=== PATIENT | female | born 1965 | race Caucasian/White ===

== ENCOUNTER 2016-12-02 09:30 | Outpatient (RCR) | payer BC ==
[~2016-12-02 09:30] MED LIST: ADVAIR 500/28 DISKUS IH; ADVAIR DISKUS 51 DSK IH; ALBUTEROL0.09 MG/A1 IH; ALLEGY SHOTS SC; AMBIEN 10MG10 MG PO; ASMANEX IH; ASMANEX TW110 MCG/AC IH; ASPIRIN 32325 MG/TAB PO; ASPIRIN 81M81 MG/TA2 PO; ASPIRIN E.C. 8181 MG PO; ASTELIN IH; ASTELIN NASAL S34 ML NS; ASTELIN137 MCG/AC NS; ATROVENT NASAL15 ML NS; BIAXIN 500MG T500 MG PO; BIAXIN FILMTAB500 MG PO; BIAXIN XL 500M500 MG PO; BIAXIN XL500 MG PO; CALCIUM + D 6001 TA1 PO; CALCIUM 500 W/V1 TAB PO; CELEXA40 MG PO; CEPHALEXIN500 M1 PO; CLOTRIMAZOLE REC; CLOTRIMAZOLE VA45 GM TP; CROMOLYN IH; CYMBALTA 20MG20 MG PO; CYMBALTA60 MG PO; DIFLUCAN; DIFLUCAN 100MG100 MG PO; DIFLUCAN PO; DIOVAN HCT 25 M1 TAB PO; FLONASE NASAL S16 GM NS; FORADIL IH; FORTEO250 MCG/ML SC; FORTEO250 MCG/ML SQ; GENTAMICIN180 MG/501 NS; GLUCOPHAGE1000 MG PO; GUAIFENESIN DM PO; HYZAAR 50-12.1 UDTAB PO; INTAL IH; LASIX PO; LASIX20 MG PO; LEVAQUIN 5500 MG/TAB PO; LISINOPRIL AND1 TAB PO; LISINOPRIL/HCTZ1 TAB PO; MEDROL; MINOCYCLIN100 MG/CAP PO; MUCINEX 60600 MG/TAB PO; MUCINEX D 600 M1 TER PO; MUCINEX DM 30 M1 TE1 PO; MUCOMYST 20200 MG/M1 IH; MULTI VITAMINS1 TAB PO; MYCELEX TROCHE10 MG MM; NIFEREX-150 501 CA1 PO; NORCO 325 MG-7.1 TAB PO; NORVASC2.5 MG PO; OXYCONTIN 80MG80 MG PO; OXYCONTIN30 MG PO; PATANASE0.6% NS; PERCOCET 325 MG1 TA2 PO; PERCOCET 325 MG1 TAB PO; PERCOCET 500 MG1 TAB PO; POTASSIUM IODID PO; PREDNISONE 5MG5 MG PO; PREDNISONE10 MG PO; PREDNISONE20 MG PO; PREMARIN 0.60.625 M1 PO; PROTONIX 40MG T40 MG PO; PULMICORT180 MCG/Ac IH; PULMICORT90 MCG/Act IH; RESTASIS0.05% OU; RT ADVAIR 128 DISKUS IH; RT ADVAIR 528 DISKUS IH; SENAKOT PO; SINGULAIR 110 MG/TAB PO; SINGULAIR10 MG PO; SPIRIVA INH IH; SPORANOX100 MG PO; SYNTHROID0.05 MG/TA PO; TAMIFLU 75MG75 MG PO; ULTRAM 50MG TAB50 MG PO; VENTOLIN0.09 MG IH; VITAMIN D 50,1.25 MG PO; VITAMIN D32000 IU; VITAMIN D32000 IU PO; XOLAIR SC; XOLAIR SQ; XOPENEX 1.1.25 MG/3 IH; XOPENEX HF0.045 MG/A IH; XOPENEX1.25 MG/0. IH; ZANTAC 150MG T150 MG PO; ZANTAC 300300 MG PO; ZANTAC PO; ZYRTEC 10MG PO; ZYRTEC 10MG10 MG PO; ZYRTEC10 MG PO; [UNRECOGNIZED DRUG - OTHER] IH; acetylcysteine; cozaar
[2016-12-09] MEDS ORDERED: NORCO 325 MG-7.1 TAB PO (09:58)
== END 2016-12-08 16:29 | disposition still patient (30) ==
LOC: WSPT 09:30
DX: M25.562 Pain in left knee (principal); R60.0 Localized edema; R53.1 Weakness

== ENCOUNTER 2016-12-09 06:09 | Day surgery (SDC) | payer BC ==
[2016-12-09] VITALS (7 sets, daily range): BP systolic 93–131; BP diastolic 42–69; PULSE 87–106; TEMP 97.7–98
[~2016-12-09] VITALS: Ht 157.5 cm; Wt 100.4 kg
[2016-12-09] MEDS ORDERED: NORCO 325 MG-7.1 TAB PO (09:58)
== END 2016-12-09 11:25 | disposition home or self-care (01) ==
LOC: SDCO 06:09
DX: L97.519 Non-pressure chronic ulcer of other part of right foot with unspecified severity (principal); L03.031 Cellulitis of right toe
CPT/HCPCS: J0690; J1170; J1720; J2250; J2405; J2704; J3010; J7030

== ENCOUNTER 2017-01-06 05:37 | Day surgery (SDC) | payer BC ==
[2017-01-06] VITALS (7 sets, daily range): BP systolic 110–159; BP diastolic 51–95; PULSE 88–102; TEMP 97.9
[~2017-01-06] VITALS: Ht 157.5 cm; Wt 102.5 kg
[2017-01-06] MEDS ORDERED: DIOVAN320 MG PO (06:43)
[2017-01-06] MEDS ORDERED: NORCO 325 MG-101 TAB PO (06:44)
== END 2017-01-06 10:55 | disposition home or self-care (01) ==
LOC: SDCO 05:37
DX: M20.42 Other hammer toe(s) (acquired), left foot (principal); L84 Corns and callosities
CPT/HCPCS: J0690; J1720; J2250; J2405; J2704; J3010; J7120

== ENCOUNTER 2017-01-19 10:01 | Inpatient (IN) | payer BC ==
[~2017-01-19] VITALS: Ht 157.5 cm; Wt 105.3 kg
[~2017-01-19 10:01] MED LIST changes: +DIOVAN320 MG PO; +NORCO 325 MG-101 TAB PO
[2017-02-25] VITALS (11 sets, daily range): BP systolic 118–154; BP diastolic 51–91; PULSE 80–107; TEMP 97–98.6
[2017-02-25] MEDS ORDERED: AMBIEN 5MG TABLE5 MG PO (06:09)
[2017-02-26] VITALS (7 sets, daily range): BP systolic 137–172; BP diastolic 46–98; PULSE 89–107; TEMP 97.3–99
[2017-02-26 06:47] LABS: HEMATOCRIT 37.5 % (37.0-47.0); HEMOGLOBIN 12.2 g/dl (12.5-16.0)
[2017-02-27 04:21] VITALS: BP 137/64; PULSE 82; TEMP 97.8
[2017-02-27 07:05] VITALS: BP 137/65; PULSE 100; TEMP 98.1
[2017-02-27 07:43] LABS: HEMOGLOBIN 11.6 g/dl (12.5-16.0)
[2017-02-27] MEDS ORDERED: ASPIRIN 32325 MG/TAB PO (08:47)
[2017-02-27] MEDS ORDERED: DAZIDOX10 MG PO (08:48)
[2017-02-27 12:22] VITALS: BP 121/58; PULSE 116; TEMP 97.9
== END 2017-02-27 14:30 | disposition home or self-care (01) | DRG 470 ==
LOC: JCC 02-25 05:33
PROVIDERS: Orthopaedic Surgery
PROC: 0SRD0J9 Replacement of Left Knee Joint with Synthetic Substitute, Cemented, Open Approach (ICD-10-PCS; principal; 2017-02-25 07:30)
DX: M17.12 Unilateral primary osteoarthritis, left knee (principal); I10 Essential (primary) hypertension; J45.909 Unspecified asthma, uncomplicated; M70.61 Trochanteric bursitis, right hip
CPT/HCPCS: A9284; C1713; C1776; J0690; J1720; J2250; J2270; J2405; J2704; J2765; J3010; J3370; J7120

== ENCOUNTER → 2017-02-09 | Outpatient (CLI) | payer BC ==
[~2017-02-09] MED LIST changes: +ALDACTONE 25MG25 M1 PO; +AMBIEN 5MG TABLE5 MG PO; +CALCIUM 600MG+D1 TAB PO; +CYMBALTA 60MG60 MG PO; +DAZIDOX10 MG PO; +LASIX 40MG TABL40 MG PO; +MASON NATURAL2000 IU PO; +PROVENTIL0.09 MG/A1 IH; +SENOKOT S 50 MG1 TAB PO
== END ==
LOC: MC.RAD 11:20
DX: Z12.31 Encounter for screening mammogram for malignant neoplasm of breast (principal)

== ENCOUNTER 2017-02-19 10:00 | Outpatient (RCR) | payer BC ==
[~2017-02-19 10:00] MED LIST changes: -ALDACTONE 25MG25 M1 PO; -AMBIEN 5MG TABLE5 MG PO; -CALCIUM 600MG+D1 TAB PO; -CYMBALTA 60MG60 MG PO; -DAZIDOX10 MG PO; -LASIX 40MG TABL40 MG PO; -MASON NATURAL2000 IU PO; -PROVENTIL0.09 MG/A1 IH; -SENOKOT S 50 MG1 TAB PO
== END 2017-02-23 | disposition home or self-care (01) ==
LOC: WSPT
DX: M25.562 Pain in left knee (principal); R60.0 Localized edema; R53.1 Weakness

== ENCOUNTER 2017-02-23 12:34 | Outpatient (RCR) | payer BC | END 2017-02-23 14:56 | LOC: WSPT 12:34 | DX: Z01.818 Encounter for other preprocedural examination (principal); M25.862 Other specified joint disorders, left knee ==

== ENCOUNTER 2017-04-10 01:35 | Emergency (ER) | payer BC ==
[~2017-04-10] VITALS: Ht 157.5 cm; Wt 102.3 kg
[~2017-04-10 01:35] MED LIST changes: +AMBIEN 5MG TABLE5 MG PO; +DAZIDOX10 MG PO
[2017-04-10 01:40] VITALS: TEMP 97.7
[2017-04-10] MEDS ORDERED: PERCOCET 325 MG1 TAB PO (01:47)
[2017-04-10 02:23] LABS: BASO # 0.1 (0.0-0.2); BASO % 0.5 % (0.0-2.0); EOS # 0.1 (0.0-0.7); GRAN # 9.1 (1.4-6.5); GRAN % 64.9 % (42.2-75.2); HEMATOCRIT 37.3 % (37.0-47.0); LYMPH # 3.4 (1.2-3.4); LYMPH % 24.1 % (20.0-51.0); MEAN CELL VOLUME 92 fl (80.0-100.0); MEAN CORPUSCULAR HEMOGLOBIN 30 pg (27.0-31.0); MEAN CORPUSCULAR HGB CONC 32 g/dl (33.0-37.0); MEAN PLATELET VOLUME 10.9 fl (7.4-10.4); MONO # 1.3 (0.1-0.6); PLATELET COUNT 326 K/mm3 (130-400); RED BLOOD COUNT 4.05 M/mm3 (4.10-5.30); REDCELL DISTRIBUTION WIDTH-CV 14.7 % (11.5-14.5)
[2017-04-10 02:28] LABS: PROTHROMBIN TIME 11.6 SECONDS (9.7-12.8)
[2017-04-10 02:30] LABS: PARTIAL THROMBOPLASTIN TIME 30.7 SECONDS (26.0-37.0)
[2017-04-10 02:34] LABS: ANION GAP 11 mmol/L (7-16); BLOOD UREA NITROGEN 12 mg/dL (7-17); C-REACTIVE PROTEIN 2.9 mg/dL (0.0-0.9); CALCIUM 8.6 mg/dL (8.4-10.2); CARBON DIOXIDE 27 mmol/L (22-30); CHLORIDE 96 mmol/L (98-107); CREATINE KINASE 115 U/L (30-135); CREATININE, serum 0.85 mg/dL (0.52-1.25); GLUCOSE 83 mg/dL (74-106); POTASSIUM 3.5 mmol/L (3.4-5.0); SODIUM 134 mmol/L (137-145)
[2017-04-10] MEDS ORDERED: PROVENTIL0.09 MG/A1 IH (02:34)
[2017-04-10] MEDS ORDERED: DIOVAN320 MG PO (02:35)
[2017-04-10] MEDS ORDERED: LASIX 40MG TABL40 MG PO (02:36)
[2017-04-10] MEDS ORDERED: CYMBALTA 60MG60 MG PO (02:37)
[2017-04-10] MEDS ORDERED: ALDACTONE 25MG25 M1 PO (02:37)
[2017-04-10] MEDS ORDERED: MASON NATURAL2000 IU PO (02:42)
[2017-04-10] MEDS ORDERED: CALCIUM 600MG+D1 TAB PO (02:42)
[2017-04-10 02:43] LABS: TROPONIN-I < 0.012 ng/mL (0.000-0.034)
[2017-04-10] MEDS ORDERED: SENOKOT S 50 MG1 TAB PO (02:44)
[2017-04-10 02:45] VITALS: BP 119/98; PULSE 84
== END 2017-04-10 03:29 | disposition home or self-care (01) ==
LOC: COL.ER 01:35
PROVIDERS: Emergency Medicine
DX: M25.511 Pain in right shoulder (principal); M79.641 Pain in right hand; J45.909 Unspecified asthma, uncomplicated; I10 Essential (primary) hypertension; G89.29 Other chronic pain; J98.4 Other disorders of lung
CPT/HCPCS: J1170; J7040

== ENCOUNTER 2017-05-01 09:15 | Outpatient (RCR) | payer BC ==
[~2017-05-01 09:15] MED LIST changes: +ALDACTONE 25MG25 M1 PO; +CALCIUM 600MG+D1 TAB PO; +CYMBALTA 60MG60 MG PO; +LASIX 40MG TABL40 MG PO; +MASON NATURAL2000 IU PO; +PROVENTIL0.09 MG/A1 IH; +SENOKOT S 50 MG1 TAB PO
== END 2017-06-02 | disposition home or self-care (01) ==
LOC: WSPT
DX: Z47.89 Encounter for other orthopedic aftercare (principal); M25.862 Other specified joint disorders, left knee
CPT/HCPCS: G0283-GP

== ENCOUNTER → 2017-05-05 | Outpatient (CLI) | payer MEDICARE, BC | LOC: MHCPAIN 09:11 | DX: G89.29 Other chronic pain (principal); M54.12 Radiculopathy, cervical region; M47.812 Spondylosis without myelopathy or radiculopathy, cervical region | CPT/HCPCS: G0463 ==

== ENCOUNTER 2017-06-09 10:00 | Outpatient (RCR) | payer MEDICARE, BC | END 2017-06-11 15:08 | LOC: WSPT 10:00 | DX: M50.30 Other cervical disc degeneration, unspecified cervical region (principal); M54.6 Pain in thoracic spine | CPT/HCPCS: G8981-GP; G8982-GP ==

== ENCOUNTER → 2017-06-22 | Outpatient (CLI) | payer BC, MEDICARE | LOC: COL.PUL 06-11 14:20 | DX: J44.9 Chronic obstructive pulmonary disease, unspecified (principal) ==

== ENCOUNTER 2017-07-02 11:00 | Outpatient (RCR) | payer MEDICARE, BC | END 2017-07-03 12:27 | disposition home or self-care (01) | LOC: WSPT 11:00 | DX: M50.30 Other cervical disc degeneration, unspecified cervical region (principal) | CPT/HCPCS: G8982-GP; G8983-GP ==

== ENCOUNTER 2017-09-01 13:20 | Outpatient (RCR) | payer BC, MEDICARE | END 2017-11-11 09:40 | disposition home or self-care (01) | LOC: WSPT 13:20 | DX: M71.551 Other bursitis, not elsewhere classified, right hip (principal) | CPT/HCPCS: G8978-GP; G8979-GP; G8980-GP ==

== ENCOUNTER 2017-11-03 15:30 | Outpatient (RCR) | payer BC, MEDICARE | END 2017-11-04 | LOC: WSPT | DX: M62.81 Muscle weakness (generalized) (principal); R52 Pain, unspecified; Z87.81 Personal history of (healed) traumatic fracture; Z96.653 Presence of artificial knee joint, bilateral; Z79.52 Long term (current) use of systemic steroids | CPT/HCPCS: G8978-GP; G8979-GP ==

== ENCOUNTER → 2017-12-02 | Outpatient (CLI) | payer MEDICARE, BC ==
[~2017-12-02] VITALS: Ht 157.5 cm; Wt 102.8 kg
[2017-12-02 17:34] VITALS: BP 146/84; PULSE 97; TEMP 97.8
== END ==
LOC: EUO 14:00
DX: M81.0 Age-related osteoporosis without current pathological fracture (principal); Z87.81 Personal history of (healed) traumatic fracture
CPT/HCPCS: J3489

== ENCOUNTER 2018-01-22 16:00 | Outpatient (RCR) | payer BC, MEDICARE | END 2018-02-04 08:12 | disposition home or self-care (01) | LOC: WSPT 16:00 | DX: M70.71 Other bursitis of hip, right hip (principal); M76.9 Unspecified enthesopathy, lower limb, excluding foot | CPT/HCPCS: G8979-GP; G8980-GP ==

== ENCOUNTER → 2018-02-23 | Outpatient (CLI) | payer MEDICARE, BC | LOC: MC.RAD 10:20 | DX: Z12.31 Encounter for screening mammogram for malignant neoplasm of breast (principal) ==

== ENCOUNTER → 2018-03-30 | Outpatient (CLI) | payer MEDICARE, BC | LOC: COL.RAD 03-11 09:27 | DX: K31.84 Gastroparesis (principal); K21.9 Gastro-esophageal reflux disease without esophagitis; R05 Cough; J45.909 Unspecified asthma, uncomplicated; R49.0 Dysphonia | CPT/HCPCS: A9541 ==

== ENCOUNTER 2018-04-02 16:00 | Outpatient (RCR) | payer MEDICARE, BC | END 2018-04-07 08:35 | disposition home or self-care (01) | LOC: WSPT 16:00 | DX: M75.52 Bursitis of left shoulder (principal) | CPT/HCPCS: G8984-GP; G8985-GP; G8986-GP ==

== ENCOUNTER 2018-12-20 14:15 | Outpatient (RCR) | payer MEDICARE, BC | END 2018-12-21 | disposition home or self-care (01) | LOC: WSPT | DX: M79.672 Pain in left foot (principal); R53.81 Other malaise; Z98.890 Other specified postprocedural states; Z96.7 Presence of other bone and tendon implants | CPT/HCPCS: G8978-GP; G8979-GP ==

== ENCOUNTER 2018-12-22 16:10 | Outpatient (RCR) | payer MEDICARE, BC | END 2018-12-30 11:27 | disposition home or self-care (01) | LOC: WSPT 16:10 | DX: M79.672 Pain in left foot (principal); R53.81 Other malaise ==

== ENCOUNTER → 2019-01-26 | Outpatient (CLI) | payer MEDICARE, BC ==
[2019-01-26 17:24] LABS: COLLECTION METHOD CLEAN CATCH
[2019-01-26 17:41] LABS: PH 7 (5-8); SQUAMOUS EPITHELIAL 0-2 /hpf; URINE APPEARANCE Clear; URINE BACTERIA Rare /hpf; URINE BILIRUBIN Negative (NEGATIVE); URINE BLOOD Negative (NEGATIVE); URINE COLOR Straw; URINE GLUCOSE Negative (NEGATIVE); URINE KETONE Negative (NEGATIVE); URINE LEUKOCYTE ESTERASE Negative (NEGATIVE); URINE NITRATE Negative (NEGATIVE); URINE PROTEIN(semi-quant) Negative (NEGATIVE); URINE RBC 0-2 /hpf; URINE UROBILINOGEN Negative (NEGATIVE); URINE WBC 0-2 /hpf
== END ==
LOC: ZCOL.LAB 16:05
PROVIDERS: Internal Medicine
DX: Z01.89 Encounter for other specified special examinations (principal)

== ENCOUNTER 2019-06-06 15:00 | Outpatient (RCR) | payer MEDICARE, BC | END 2019-06-21 09:14 | disposition home or self-care (01) | LOC: WSPT 15:00 | DX: S82.001A Unspecified fracture of right patella, initial encounter for closed fracture (principal) ==

== ENCOUNTER → 2019-06-15 | Outpatient (CLI) | payer MEDICARE, BC | LOC: MC.RAD 11:15 | DX: Z12.31 Encounter for screening mammogram for malignant neoplasm of breast (principal); N63.41 Unspecified lump in right breast, subareolar ==

== ENCOUNTER → 2019-06-21 | Outpatient (CLI) | payer MEDICARE, BC | LOC: MC.RAD 14:27 | DX: N60.01 Solitary cyst of right breast (principal) ==

== ENCOUNTER → 2019-06-24 | Outpatient (CLI) | payer MEDICARE, BC | LOC: MC.RAD 12:48 | DX: N60.01 Solitary cyst of right breast (principal) ==

== ENCOUNTER 2019-11-03 11:15 | Outpatient (RCR) | payer MEDICARE, BC | END 2020-02-01 | disposition still patient (30) | LOC: WSST | DX: R13.12 Dysphagia, oropharyngeal phase (principal); R05 Cough ==

== ENCOUNTER → 2020-01-04 | Outpatient (CLI) | payer MEDICARE, BC | LOC: COL.RAD 14:27 | DX: R13.10 Dysphagia, unspecified (principal); R05 Cough ==

== ENCOUNTER 2020-02-02 12:00 | Outpatient (RCR) | payer MEDICARE, BC | END 2020-03-07 14:22 | disposition home or self-care (01) | LOC: WSPT 12:00 | DX: S82.091 Other fracture of right patella (principal); E11.40 Type 2 diabetes mellitus with diabetic neuropathy, unspecified; Z89.421 Acquired absence of other right toe(s); Z98.890 Other specified postprocedural states ==

== ENCOUNTER 2020-04-27 10:44 | Observation (INO) | payer MEDICARE, BC ==
[~2020-04-27] VITALS: Ht 157.5 cm; Wt 111.1 kg
[2020-04-27 11:16] LABS: COLLECTION METHOD CLEAN CATCH
[2020-04-27 11:25] LABS: BASO # 0.1 (0.0-0.2); BASO % 0.9 % (0.0-2.0); EOS # 0.4 (0.0-0.7); EOS % 3.3 % (0-4.0); GRAN # 5.8 (1.4-6.5); GRAN % 55.5 % (42.2-75.2); HEMATOCRIT 38.7 % (37.0-47.0); HEMOGLOBIN 11.8 g/dl (12.5-16.0); LYMPH # 3.2 (1.2-3.4); LYMPH % 30.7 % (20.0-51.0); MEAN CELL VOLUME 89 fl (80.0-100.0); MEAN CORPUSCULAR HEMOGLOBIN 27 pg (27.0-31.0); MEAN CORPUSCULAR HGB CONC 31 g/dl (33.0-37.0); MEAN PLATELET VOLUME 10.9 fl (7.4-10.4); MONO % 9.2 % (1.7-9.3); PLATELET COUNT 337 K/mm3 (130-400); RED BLOOD COUNT 4.33 M/mm3 (4.10-5.30); REDCELL DISTRIBUTION WIDTH-CV 15.9 % (11.5-14.5)
[2020-04-27 11:36] LABS: MUCOUS Present /lpf; PH 5 (5-8); SQUAMOUS EPITHELIAL 0-2 /hpf; URINE APPEARANCE Hazy; URINE BACTERIA None Seen /hpf; URINE BILIRUBIN Negative (NEGATIVE); URINE BLOOD Negative (NEGATIVE); URINE COLOR Yellow; URINE GLUCOSE 3+ (NEGATIVE); URINE KETONE Negative (NEGATIVE); URINE LEUKOCYTE ESTERASE Negative (NEGATIVE); URINE NITRATE Negative (NEGATIVE); URINE PROTEIN(semi-quant) Negative (NEGATIVE); URINE RBC 0-2 /hpf; URINE UROBILINOGEN Negative (NEGATIVE)
[2020-04-27 11:36] LABS: ALANINE AMINOTRANSFERASE 25 U/L (4-34); ALBUMIN 4.1 gm/dL (3.5-5.0); ALKALINE PHOSPHATASE 97 U/L (50-136); ANION GAP 11 mmol/L (7-16); AST,SGOT 30 U/L (15-37); BILIRUBIN,TOTAL 0.4 mg/dL (0.0-1.0); BLOOD UREA NITROGEN 28 mg/dL (7-17); C-REACTIVE PROTEIN < 0.5 mg/dL (0.0-0.9); CALCIUM 8.2 mg/dL (8.4-10.2); CARBON DIOXIDE 25 mmol/L (22-30); CHLORIDE 99 mmol/L (98-107); CREATININE, serum 1.52 (0.52-1.25); GLUCOSE 114 mg/dL (74-106); POTASSIUM 3.7 mmol/L (3.4-5.0); SODIUM 134 mmol/L (137-145); TOTAL PROTEIN 7.2 gm/dL (6.4-8.2)
[2020-04-27] MEDS ORDERED: CORTEF 10MG TAB10 MG PO (11:48)
[2020-04-27 11:55] VITALS: BP 90/46; PULSE 96
[2020-04-27] MEDS ORDERED: PROVENTIL0.09 MG/A1 IH (12:47)
[2020-04-27] MEDS ORDERED: ASTEPRO205.5 MCG/ NS (12:48)
[2020-04-27] MEDS ORDERED: ATACAND32 MG PO (12:54)
[2020-04-27] MEDS ORDERED: CEPHALEXIN500 M1 PO (12:55)
[2020-04-27] MEDS ORDERED: FARXIGA10 PO (12:58)
[2020-04-27] MEDS ORDERED: PEPCID 20MG TAB20 MG PO (12:59)
[2020-04-27] MEDS ORDERED: FLONASEALLERGY NS (13:02)
[2020-04-27] MEDS ORDERED: NEURONTIN600 MG/TAB PO (13:04)
[2020-04-27] MEDS ORDERED: SYNTHROID0.075 MG/T PO (13:07)
[2020-04-27] MEDS ORDERED: BACTROBAN 22GM22 GM NAS (13:11)
[2020-04-27] MEDS ORDERED: OXYCONTIN30 MG PO (13:12)
[2020-04-27] MEDS ORDERED: NARCAN4 MG NS (13:13)
[2020-04-27] MEDS ORDERED: ZOFRAN ODT4 MG PO (13:14)
[2020-04-27] MEDS ORDERED: PREMARIN .3MG0.3 MG PO (13:15)
[2020-04-27] MEDS ORDERED: CRESTOR 10MG10 MG PO (13:16)
[2020-04-27] MEDS ORDERED: PREVIDENT5000PLUS DT (13:16)
[2020-04-27] MEDS ORDERED: SENNA-LAX8.6 MG PO (13:17)
[2020-04-27] MEDS ORDERED: ALDACTONE 25MG25 M1 PO (13:18)
[2020-04-27] MEDS ORDERED: DESYREL 50MG50 MG PO (13:19)
[2020-04-27] MEDS ORDERED: TYMLOS1.56 ML SQ (13:20)
[2020-04-27 14:54] VITALS: BP 108/56; PULSE 91; TEMP 97.9
[2020-04-27 15:08] VITALS: BP 108/56; PULSE 91; TEMP 97.9
[2020-04-27] MEDS ORDERED: VITAMIN D31000 IU PO (16:24)
--- NOTE | 2020-04-27 19:34 | NUR ---
Pt to floor this afternoon from the ED, Pt has chronic pain and requested pain medication, medication was given as soon as able. all initial assessments completed.
[2020-04-27 19:53] VITALS: BP 122/70; PULSE 76; TEMP 97.2
--- NOTE | 2020-04-27 21:00 | NUR ---
Received report from TONY Saavedra. A/Ox4. Independent in room. Has chronic pain and c/o pain to pelvic area, rate 4/10, scheduled pain meds and other meds administered. IVF infusing to LFA, intact, dressing CDI. Tele monitor in place.BLE edema observed 3+. Needs met at this time. call light within reach.
[2020-04-27 23:57] VITALS: BP 124/74; PULSE 83; TEMP 98.1
--- NOTE | 2020-04-28 00:30 | NUR ---
Covid lab negative. Pt ambulated to room 358.
[2020-04-28 03:18] VITALS: BP 110/54; PULSE 85; TEMP 97.8
--- NOTE | 2020-04-28 05:39 | NUR ---
Pt made no complaints during this shift. Meds administered as ordered. Needs attended too. Call light within reach.
[2020-04-28 06:49] LABS: HEMATOCRIT 39.1 % (37.0-47.0); HEMOGLOBIN 11.8 g/dl (12.5-16.0); MEAN CELL VOLUME 90 fl (80.0-100.0); MEAN CORPUSCULAR HEMOGLOBIN 27 pg (27.0-31.0); MEAN CORPUSCULAR HGB CONC 30 g/dl (33.0-37.0); PLATELET COUNT 286 K/mm3 (130-400); RED BLOOD COUNT 4.37 M/mm3 (4.10-5.30); REDCELL DISTRIBUTION WIDTH-CV 15.8 % (11.5-14.5)
[2020-04-28 06:58] LABS: ALBUMIN 3.6 gm/dL (3.5-5.0); BILIRUBIN,TOTAL 0.3 mg/dL (0.0-1.0); CALCIUM 7.7 mg/dL (8.4-10.2); CREATININE, serum 0.83 (0.52-1.25); POTASSIUM 4.1 mmol/L (3.4-5.0); TOTAL PROTEIN 6.7 gm/dL (6.4-8.2)
[2020-04-28 07:21] VITALS: BP 118/89; PULSE 88; TEMP 97.8
--- NOTE | 2020-04-28 07:22 | NUR ---
report given to TONY Ulloa.
[2020-04-28] MEDS ORDERED: PREDNISONE10 MG PO (11:14)
--- NOTE | 2020-04-28 11:31 | NUR ---
Patient is alert and oriented. bilateral lower extremity edema at 2+. multiple bruises on patient arms. Patient said "she is feeling better today compared to yesterday and ready to go home." heart sound is normal. Lung sound clear, mild expiratory wheezing. no SOA.
[2020-04-28 13:22] VITALS: BP 132/83; PULSE 79; TEMP 97.8
--- NOTE | 2020-04-28 13:36 | NUR ---
SW met with patient about DC. Patient reports that she resides in town alone. Plans to return home independently. Patient reports that her EMR contact is her friend Jackie Osorio . Patient indicated that she has a walker and other DME if needed due to other health concerns over the course of her lifetime. Patient shares that she use [facility] for RX and [facility] is Dr. Sanchez. Patient reports that use an [employer] at home Adv[facility]. Patient reports concerns of minor issues with medications with understanding of systems. No complaint filed. YAHAIRA educated patient on Support services. Will continue to follow for need changes.
--- NOTE | 2020-04-28 16:28 | NUR ---
INT discontinued. Patient was started on tapered Prednisone. information about next appointment was given to patient with education on visit diagnosis - Adrenal Crisis. Patient discharged.
== END 2020-04-28 12:00 | disposition home or self-care (01) ==
LOC: COL.ER 10:44 → PEDS 12:30 → MEDICAL 04-28 00:03
PROVIDERS: Emergency Medicine
DX: I95.1 Orthostatic hypotension (principal); J45.998 Other asthma; G89.29 Other chronic pain; R10.2 Pelvic and perineal pain; G47.00 Insomnia, unspecified; E27.40 Unspecified adrenocortical insufficiency; E03.9 Hypothyroidism, unspecified; E87.1 Hypo-osmolality and hyponatremia; E87.2 Acidosis; E66.01 Morbid (severe) obesity due to excess calories; Q21.1 Atrial septal defect; N17.9 Acute kidney failure, unspecified; D64.9 Anemia, unspecified; I10 Essential (primary) hypertension; Z20.828 Contact with and (suspected) exposure to other viral communicable diseases; Z88.8 Allergy status to other drugs, medicaments and biological substances; Z79.52 Long term (current) use of systemic steroids; Z79.891 Long term (current) use of opiate analgesic; Z79.82 Long term (current) use of aspirin; Z79.899 Other long term (current) drug therapy; Z79.84 Long term (current) use of oral hypoglycemic drugs; Z88.2 Allergy status to sulfonamides
CPT/HCPCS: G0378; J1720; J7030

== ENCOUNTER 2020-06-11 13:17 | Outpatient (RCR) | payer MEDICARE, BC ==
[2020-05-10 16:00] VITALS: BP 137/86; PULSE 86; TEMP 97.7
[2020-05-24 14:00] VITALS: BP 106/63; PULSE 93; TEMP 98
[~2020-06-11] VITALS: Ht 157.5 cm; Wt 111.0 kg
[~2020-06-11 13:17] MED LIST changes: +ASTEPRO205.5 MCG/ NS; +ATACAND32 MG PO; +BACTROBAN 22GM22 GM NAS; +CORTEF 10MG TAB10 MG PO; +CRESTOR 10MG10 MG PO; +DESYREL 50MG50 MG PO; +FARXIGA10 PO; +FLONASEALLERGY NS; +NARCAN4 MG NS; +NEURONTIN600 MG/TAB PO; +PEPCID 20MG TAB20 MG PO; +PREMARIN .3MG0.3 MG PO; +PREVIDENT5000PLUS DT; +SENNA-LAX8.6 MG PO; +SYNTHROID0.075 MG/T PO; +TYMLOS1.56 ML SQ; +VITAMIN D31000 IU PO; +ZOFRAN ODT4 MG PO
[2020-06-11 14:02] VITALS: BP 109/56; PULSE 93; TEMP 97.3
== END 2020-06-11 16:00 | disposition still patient (30) ==
LOC: EUO 13:17
DX: D50.9 Iron deficiency anemia, unspecified (principal)
CPT/HCPCS: J2916; J7050

== ENCOUNTER 2020-06-29 13:45 | Outpatient (RCR) | payer MEDICARE, BC | END 2020-07-17 | disposition home or self-care (01) | LOC: WSPT | DX: S82.091 Other fracture of right patella (principal); E11.42 Type 2 diabetes mellitus with diabetic polyneuropathy; Z89.421 Acquired absence of other right toe(s); Z98.890 Other specified postprocedural states ==

== ENCOUNTER 2020-10-05 08:00 | Outpatient (RCR) | payer MEDICARE, BC ==
[2020-09-27 15:26] VITALS: BP 121/66; PULSE 89; TEMP 98.2
[~2020-10-05] VITALS: Ht 157.5 cm; Wt 109.6 kg
[2020-10-05 09:20] VITALS: BP 143/81; PULSE 81; TEMP 97.6
== END 2020-10-05 11:05 | disposition home or self-care (01) ==
LOC: EUO 08:00
DX: D50.9 Iron deficiency anemia, unspecified (principal)
CPT/HCPCS: J2916; J7050

== ENCOUNTER → 2020-11-02 | Outpatient (CLI) | payer MEDICARE, BC | LOC: MC.RAD 10-12 07:00 | DX: Z12.31 Encounter for screening mammogram for malignant neoplasm of breast (principal) ==

== ENCOUNTER → 2020-11-26 | Outpatient (RCR) | payer MEDICARE, BC | END | disposition home or self-care (01) | LOC: WSPT | DX: S82.091A Other fracture of right patella, initial encounter for closed fracture (principal) ==

== ENCOUNTER 2021-02-14 10:30 | Outpatient (RCR) | payer MEDICARE, BC | END 2021-02-26 | disposition home or self-care (01) | LOC: WSPT | DX: S82.091A Other fracture of right patella, initial encounter for closed fracture (principal) ==

== ENCOUNTER 2021-07-24 11:15 | Outpatient (RCR) | payer MEDICARE, BC | END 2021-07-28 | disposition home or self-care (01) | LOC: WSPT | DX: S82.091 Other fracture of right patella (principal); E11.42 Type 2 diabetes mellitus with diabetic polyneuropathy; Z89.421 Acquired absence of other right toe(s); Z98.890 Other specified postprocedural states ==

== ENCOUNTER 2021-10-03 12:45 | Outpatient (RCR) | payer MEDICARE, BC | END 2021-10-07 13:29 | disposition home or self-care (01) | LOC: WSPT 12:45 | DX: S82.001A Unspecified fracture of right patella, initial encounter for closed fracture (principal); Z98.890 Other specified postprocedural states ==

== ENCOUNTER 2021-10-22 13:10 | Outpatient (CLI) | payer MEDICARE, BC ==
[~2021-10-22] VITALS: Ht 157.5 cm; Wt 92.7 kg
[2021-10-22] MEDS ORDERED: ATACAND 16M16 MG/TAB PO (13:28)
[2021-10-22] MEDS ORDERED: LASIX 40MG TABL40 MG PO (13:28)
[2021-10-22] MEDS ORDERED: ALDACTONE 25MG25 M1 PO (13:28)
[2021-10-22 13:33] VITALS: BP 135/72; PULSE 89; TEMP 97.9
== END 2021-10-22 14:09 ==
LOC: EUO 13:10
DX: M80.80XS Other osteoporosis with current pathological fracture, unspecified site, sequela (principal); Z79.899 Other long term (current) drug therapy
CPT/HCPCS: J3111

== ENCOUNTER 2021-11-21 13:10 | Outpatient (RCR) | payer MEDICARE, BC ==
[~2021-11-21] VITALS: Ht 157.5 cm; Wt 93.5 kg
[~2021-11-21 13:10] MED LIST changes: +ATACAND 16M16 MG/TAB PO
[2021-11-21] MEDS ORDERED: FASENRA30 MG/1 ML SQ (13:58)
[2021-11-21] MEDS ORDERED: EVENITY (2210 MG/2.3 SQ (13:58)
[2021-11-21 14:01] VITALS: BP 126/64; PULSE 87; TEMP 97.7
== END 2021-11-21 14:02 ==
LOC: EUO 13:10
DX: M80.80XS Other osteoporosis with current pathological fracture, unspecified site, sequela (principal)
CPT/HCPCS: J3111

== ENCOUNTER → 2021-12-19 | Outpatient (CLI) | payer MEDICARE, BC ==
[~2021-12-19] MED LIST changes: +EVENITY (2210 MG/2.3 SQ; +FASENRA30 MG/1 ML SQ; +OZEMPIC1 MG/0.75 SQ
== END ==
LOC: MC.RAD 13:14
DX: Z12.31 Encounter for screening mammogram for malignant neoplasm of breast (principal)

== ENCOUNTER 2021-12-20 13:06 | Outpatient (CLI) | payer MEDICARE, BC ==
[~2021-12-20] VITALS: Ht 157.5 cm; Wt 90.9 kg
[~2021-12-20 13:06] MED LIST changes: -OZEMPIC1 MG/0.75 SQ
[2021-12-20 14:02] VITALS: BP 128/63; PULSE 95; TEMP 97.9
[2021-12-20] MEDS ORDERED: OZEMPIC1 MG/0.75 SQ (14:07)
== END 2021-12-20 18:04 | disposition home or self-care (01) ==
LOC: EUO 13:06
DX: M80.80XS Other osteoporosis with current pathological fracture, unspecified site, sequela (principal)
CPT/HCPCS: J3111

== ENCOUNTER 2022-01-17 13:30 | Outpatient (RCR) | payer MEDICARE, BC ==
[~2022-01-17 13:30] MED LIST changes: +OZEMPIC1 MG/0.75 SQ; -SYNTHROID0.075 MG/T PO
== END 2022-01-20 | disposition home or self-care (01) ==
LOC: WSPT
DX: M19.90 Unspecified osteoarthritis, unspecified site (principal); G89.29 Other chronic pain; R53.81 Other malaise

== ENCOUNTER 2022-01-20 13:11 | Outpatient (CLI) | payer MEDICARE, BC ==
[~2022-01-20] VITALS: Ht 157.5 cm; Wt 92.7 kg
[~2022-01-20 13:11] MED LIST changes: +SYNTHROID0.075 MG/T PO
[2022-01-20 14:03] VITALS: BP 128/66; PULSE 87; TEMP 98
== END 2022-01-20 17:41 | disposition home or self-care (01) ==
LOC: EUO 13:11
DX: M80.80XA Other osteoporosis with current pathological fracture, unspecified site, initial encounter for fracture (principal)
CPT/HCPCS: J3111

== ENCOUNTER 2022-02-19 13:05 | Outpatient (RCR) | payer MEDICARE, BC ==
[~2022-02-19 13:05] MED LIST changes: -SYNTHROID0.075 MG/T PO
[2022-02-19 13:59] VITALS: BP 125/65; PULSE 79; TEMP 98
[2022-02-19] MEDS ORDERED: ASTEPRO205.5 MCG/ NS (15:02)
[2022-02-19] MEDS ORDERED: ATACAND 16M16 MG/TAB PO (15:04)
[2022-02-19] MEDS ORDERED: TEMOVATE0.05% TP (15:07)
[2022-02-19] MEDS ORDERED: LOTRIMIN15 GM TOP (15:08)
[2022-02-19] MEDS ORDERED: CYMBALTA 60MG60 MG PO (15:10)
[2022-02-19] MEDS ORDERED: PEPCID 20MG TAB20 MG PO (15:12)
[2022-02-19] MEDS ORDERED: PREDNISONE10 MG PO (15:19)
[2022-02-19] MEDS ORDERED: TRIAMCINOLONE A15 G3 TP (15:24)
[2022-02-19] MEDS ORDERED: ROZEREM 8MG TABL8 MG PO (15:25)
== END 2022-02-19 15:26 ==
LOC: EUO 13:05
DX: M80.80XA Other osteoporosis with current pathological fracture, unspecified site, initial encounter for fracture (principal)
CPT/HCPCS: J3111

== ENCOUNTER → 2022-02-20 | Outpatient (RCR) | payer MEDICARE, BC ==
[~2022-02-20] MED LIST changes: +LOTRIMIN15 GM TOP; +LYRICA 100MG C100 M1 PO; +ROZEREM 8MG TABL8 MG PO; +SYNTHROID 0.0.025 MG PO; +TEMOVATE0.05% TP; +TRIAMCINOLONE A15 G3 TP
== END | disposition still patient (30) ==
LOC: WSPT → WSC 01-24 09:00 → WSPT 01-27 12:45 → WSC 02-14 13:30 → WSPT 12:45
DX: M19.90 Unspecified osteoarthritis, unspecified site (principal)

== ENCOUNTER 2022-03-19 08:15 | Outpatient (RCR) | payer MEDICARE, BC ==
[~2022-03-19 08:15] MED LIST changes: -LYRICA 100MG C100 M1 PO; -SYNTHROID 0.0.025 MG PO
[2022-03-19] MEDS ORDERED: SYNTHROID 0.0.025 MG PO (12:07)
[2022-03-19] MEDS ORDERED: SYNTHROID0.05 MG/TA PO (12:07)
== END 2022-03-22 | disposition home or self-care (01) ==
LOC: WSC
DX: M19.90 Unspecified osteoarthritis, unspecified site (principal); R53.81 Other malaise; G89.29 Other chronic pain

== ENCOUNTER 2022-04-16 12:45 | Outpatient (RCR) | payer MEDICARE, BC ==
[~2022-04-16 12:45] MED LIST changes: +SYNTHROID 0.0.025 MG PO
[2022-04-18] MEDS ORDERED: LYRICA 100MG C100 M1 PO (15:26)
== END 2022-04-22 | disposition still patient (30) ==
LOC: WSPT
DX: M19.90 Unspecified osteoarthritis, unspecified site (principal); R53.81 Other malaise

== ENCOUNTER 2022-04-18 14:57 | Outpatient (CLI) | payer MEDICARE, BC ==
[2022-04-16 15:22] VITALS: BP 136/58; PULSE 85; TEMP 98.3
[~2022-04-18] VITALS: Ht 157.5 cm; Wt 94.7 kg
[2022-04-18] MEDS ORDERED: LYRICA 100MG C100 M1 PO (15:26)
[2022-04-18 15:29] VITALS: BP 115/71; PULSE 95; TEMP 98.5
== END 2022-04-18 16:04 | disposition home or self-care (01) ==
LOC: EUO 14:57
DX: M80.80XS Other osteoporosis with current pathological fracture, unspecified site, sequela (principal)
CPT/HCPCS: J3111

== ENCOUNTER 2022-05-16 14:58 | Outpatient (RCR) | payer MEDICARE, BC ==
[~2022-05-16] VITALS: Ht 157.5 cm; Wt 95.8 kg
[~2022-05-16 14:58] MED LIST changes: +LYRICA 100MG C100 M1 PO; +OZEMPIC1 MG/0.71 SQ; -OZEMPIC1 MG/0.75 SQ
[2022-05-16 15:33] VITALS: BP 121/54; PULSE 82; TEMP 98.2
== END 2022-05-16 16:14 | disposition home or self-care (01) ==
LOC: EUO 14:58
DX: M80.80XS Other osteoporosis with current pathological fracture, unspecified site, sequela (principal)
CPT/HCPCS: J3111

== ENCOUNTER 2022-05-21 09:45 | Outpatient (RCR) | payer MEDICARE, BC | END 2022-05-22 | disposition home or self-care (01) | LOC: WSC | DX: R53.81 Other malaise (principal); G89.29 Other chronic pain; M19.90 Unspecified osteoarthritis, unspecified site ==

== ENCOUNTER 2022-06-16 15:04 | Outpatient (CLI) | payer MEDICARE, BC ==
[~2022-06-16] VITALS: Ht 157.5 cm; Wt 98.7 kg
[2022-06-16 15:34] VITALS: BP 84/48; PULSE 93; TEMP 97.7
== END 2022-06-16 18:11 | disposition home or self-care (01) ==
LOC: EUO 15:04
DX: M81.0 Age-related osteoporosis without current pathological fracture (principal)
CPT/HCPCS: J3111

== ENCOUNTER 2022-06-17 12:45 | Outpatient (RCR) | payer MEDICARE, BC | END 2022-06-22 | disposition home or self-care (01) | LOC: WSPT | DX: M19.90 Unspecified osteoarthritis, unspecified site (principal); R53.81 Other malaise ==

== ENCOUNTER 2022-07-15 11:07 | Outpatient (RCR) | payer MEDICARE, BC ==
[~2022-07-15] VITALS: Ht 157.5 cm; Wt 98.9 kg
[2022-07-15 11:48] VITALS: BP 126/66; PULSE 72; TEMP 98
[2022-07-15] MEDS ORDERED: TYLENOL 325MG325 MG PO (11:48)
[2022-07-15] MEDS ORDERED: RT ALBUTER2.5 MG/0.5 IH (11:50)
[2022-07-15] MEDS ORDERED: EPIPEN 2-PAK1 MG/ML IM (11:52)
[2022-07-15] MEDS ORDERED: EVENITY (2210 MG/2.3 SQ (11:54)
== END 2022-07-15 13:00 | disposition home or self-care (01) ==
LOC: EUO 11:07
DX: M80.80XS Other osteoporosis with current pathological fracture, unspecified site, sequela (principal)
CPT/HCPCS: J3111

== ENCOUNTER → 2022-07-23 | Outpatient (RCR) | payer MEDICARE, BC ==
[~2022-07-23] MED LIST changes: +EPIPEN 2-PAK1 MG/ML IM; +RT ALBUTER2.5 MG/0.5 IH; +TYLENOL 325MG325 MG PO
== END | disposition home or self-care (01) ==
LOC: WSPT
DX: M19.90 Unspecified osteoarthritis, unspecified site (principal); G89.29 Other chronic pain; R53.81 Other malaise

== ENCOUNTER 2022-08-15 14:58 | Outpatient (RCR) | payer MEDICARE, BC ==
[~2022-08-15] VITALS: Ht 157.5 cm; Wt 98.0 kg
[2022-08-15 15:10] VITALS: BP 116/91; PULSE 79; TEMP 98.7
== END 2022-08-15 15:35 ==
LOC: EUO 14:58
DX: M80.80XS Other osteoporosis with current pathological fracture, unspecified site, sequela (principal)
CPT/HCPCS: J3111

== ENCOUNTER 2022-09-12 15:06 | Outpatient (CLI) | payer MEDICARE, BC ==
[~2022-09-12] VITALS: Ht 157.5 cm; Wt 96.2 kg
[2022-09-12 15:30] VITALS: BP 128/67; PULSE 96; TEMP 97.7
== END 2022-09-12 16:00 | disposition home or self-care (01) ==
LOC: EUO 15:06
DX: M80.80XS Other osteoporosis with current pathological fracture, unspecified site, sequela (principal)
CPT/HCPCS: J3111

== ENCOUNTER 2022-12-22 14:15 | Outpatient (RCR) | payer MEDICARE, BC | END 2022-12-23 | disposition home or self-care (01) | LOC: WSPT | DX: M19.90 Unspecified osteoarthritis, unspecified site (principal); R53.81 Other malaise; M54.2 Cervicalgia ==

== ENCOUNTER 2023-01-27 15:53 | Outpatient (CLI) | payer MEDICARE, BC ==
[~2023-01-27] VITALS: Ht 157.5 cm; Wt 94.9 kg
[2023-01-27] MEDS ORDERED: [UNRECOGNIZED DRUG - CODE] SL (16:33)
[2023-01-27 16:34] VITALS: BP 126/70; PULSE 87; TEMP 98.5
--- NOTE | 2023-01-27 17:15 | NUR ---
PT DISCHARGED AT 1710 AND AMBULATED TO CAR FROM . PT WAS OBSERVED FOR 20 MINUTES FOLLOWING FIRST INFUSION OF [facility] AND REPORTED NO COMPLAINTS DURING THAT TIME. PT TOLERATED PO FLUIDS DURING OBSERVATION. PT WAS INFORMED THAT SHE IS NOT DUE FOR RECURRING IRON INFUSIONS.
== END 2023-01-27 17:10 | disposition home or self-care (01) ==
LOC: EUO 15:53
DX: E61.1 Iron deficiency (principal)
CPT/HCPCS: J1756

== ENCOUNTER → 2023-02-10 | Outpatient (CLI) | payer MEDICARE, BC ==
[~2023-02-10] MED LIST changes: +LAMISIL250 M1; +PROAIR HFA0.09 MG/AC IH; +ZITHROMAX Z PA250 MG PO; +ZOFRAN 4MG T4 MG/TAB PO; +[UNRECOGNIZED DRUG - CODE] SL
== END ==
LOC: MC.RAD 02-05 09:00
DX: Z12.31 Encounter for screening mammogram for malignant neoplasm of breast (principal)

== ENCOUNTER 2023-08-20 13:30 | Outpatient (RCR) | payer MEDICARE, BC | END 2023-08-22 | disposition home or self-care (01) | LOC: WSPT | DX: R53.81 Other malaise (principal); G89.29 Other chronic pain; M19.90 Unspecified osteoarthritis, unspecified site; M54.2 Cervicalgia ==

== ENCOUNTER 2023-11-20 11:15 | Outpatient (RCR) | payer MEDICARE, BC | END 2023-11-22 | disposition home or self-care (01) | LOC: WSPT | DX: R53.81 Other malaise (principal); M19.90 Unspecified osteoarthritis, unspecified site; M48.02 Spinal stenosis, cervical region; M50.30 Other cervical disc degeneration, unspecified cervical region ==

== ENCOUNTER → 2023-12-23 | Outpatient (RCR) | payer MEDICARE, BC ==
[~2023-12-23] MED LIST changes: +DOXYCYCLINE 10100 MG PO
== END | disposition home or self-care (01) ==
LOC: WSPT
DX: R53.81 Other malaise (principal); M48.02 Spinal stenosis, cervical region; M50.30 Other cervical disc degeneration, unspecified cervical region; M19.90 Unspecified osteoarthritis, unspecified site; G89.29 Other chronic pain

== ENCOUNTER 2023-12-29 09:45 | Outpatient (RCR) | payer MEDICARE, BC ==
[~2023-12-29 09:45] MED LIST changes: -DOXYCYCLINE 10100 MG PO
[2024-01-01] MEDS ORDERED: DOXYCYCLINE 10100 MG PO (00:56)
[2024-03-08] MEDS ORDERED: MOUNJARO15 MG/0.5 SQ (14:39)
[2024-03-08] MEDS ORDERED: TEZSPIRE210 MG/1.9 SQ (14:40)
[2024-03-08] MEDS ORDERED: WELLBUTRIN SR100 M1 PO (14:41)
== END 2024-01-21 | disposition home or self-care (01) ==
LOC: WSPT
DX: R53.81 Other malaise (principal); M48.02 Spinal stenosis, cervical region; M50.30 Other cervical disc degeneration, unspecified cervical region; M19.90 Unspecified osteoarthritis, unspecified site

== ENCOUNTER 2023-12-31 22:47 | Emergency (ER) | payer MEDICARE, BC ==
[~2023-12-31] VITALS: Ht 154.9 cm; Wt 93.2 kg
[2023-12-31 22:52] VITALS: TEMP 98.4
[2023-12-31] MEDS ORDERED: oxyCODONE/Acetaminophen 5-325 MG TAB PO ONE (23:15)
[2024-01-01] MEDS ORDERED: DOXYCYCLINE 10100 MG PO (00:56)
[2024-01-01] MEDS ORDERED: Doxycycline Monohydrate 100 MG CAP PO ONE (01:00)
[2024-01-01 01:45] VITALS: BP 122/78; PULSE 64
== END 2024-01-01 02:18 | disposition home or self-care (01) ==
LOC: COL.ER 22:47
DX: S52.121A Displaced fracture of head of right radius, initial encounter for closed fracture (principal); S81.812A Laceration without foreign body, left lower leg, initial encounter; G89.29 Other chronic pain; Z88.2 Allergy status to sulfonamides; Z23 Encounter for immunization; W01.198A Fall on same level from slipping, tripping and stumbling with subsequent striking against other object, initial encounter; Y92.000 Kitchen of unspecified non-institutional (private) residence as the place of occurrence of the external cause

== ENCOUNTER 2024-05-13 09:45 | Outpatient (RCR) | payer MEDICARE, BC ==
[~2024-05-13 09:45] MED LIST changes: +DOXYCYCLINE 10100 MG PO; +MOUNJARO15 MG/0.5 SQ; +TEZSPIRE210 MG/1.9 SQ; +WELLBUTRIN SR100 M1 PO
== END 2024-05-22 ==
LOC: WSPT
DX: M75.102 Unspecified rotator cuff tear or rupture of left shoulder, not specified as traumatic (principal)

== ENCOUNTER → 2024-06-22 | Outpatient (RCR) | payer MEDICARE, BC | END | disposition home or self-care (01) | LOC: WSC → WSPT 05-24 10:30 → WSC 08:15 | DX: M75.102 Unspecified rotator cuff tear or rupture of left shoulder, not specified as traumatic (principal) ==